=== PATIENT | female | born 1960 | race Caucasian/White ===

== ENCOUNTER 2017-09-11 09:12 | Day surgery (SDC) | payer OTHER ==
[2017-09-05 12:25] VITALS: BMI 26.4
[2017-09-11] MEDS ORDERED: MIDAZOLAM HCL 2 MG/2 ML SINGLE DOSE VIAL ONE (10:39)
[2017-09-11] MEDS ORDERED: ONDANSETRON 4 MG/2 ML VIAL IVPUSH PRN (11:22)
[2017-09-11] MEDS ORDERED: ACETAMINOPHEN 325 MG TABLET (FP) PO PRN (11:22)
[2017-09-11] MEDS ORDERED: oxyCODONE HCL 5 MG TABLET PO PRN (11:22)
[2017-09-11] MEDS ORDERED: LACTATED RINGERS SOLUTION 1,000 ML IV SCH (11:30)
[2017-09-11 12:10] VITALS: TEMP 97.6
[2017-09-11 12:26] VITALS: BP 120/72; PULSE 62
--- NOTE | 2017-09-13 08:57 | OP ---
DATE OF OPERATION: 09/11/2017 PREOPERATIVE DIAGNOSIS: Right hand mass. POSTOPERATIVE DIAGNOSIS: Right hand mass. OPERATIVE PROCEDURE: Right hand mass excision. ANESTHESIA: Local with sedation. COMPLICATIONS: None. ESTIMATED BLOOD LOSS: Minimal. INDICATION FOR PROCEDURE: Patient is a 56-year-old female with the above finding, indicated for operative treatment. Risks, benefits, and alternatives were discussed with the patient at length. Proper informed consent was obtained. PROCEDURE: After proper identification of the patient and the correct operative site, the patient was brought to the operating room and placed supine on the operating table. All prominences were well padded. Sedation was given by the anesthesiologist. Local anesthesia was given with 2% lidocaine. The right upper extremity was prepped and draped in the usual sterile fashion. A well-padded tourniquet was placed with a sterile prep. An Esmarch bandage was used to exsanguinate the right upper extremity. The tourniquet was inflated to 250 mmHg. The patient's mass was in the dorsal aspect of the hand just proximal to the MT joint to the index finger. The central portion of the mass was ellipsed out through the skin, and the subcutaneous tissues were excised around the mass in whole and sent for pathological evaluation. Skin was then elevated and repaired using a 5-0 nylon suture. Sterile dressings were applied. Patient was reversed from anesthesia and brought to recovery room in stable condition. She tolerated the procedure well. SANJUANITA CARRASCO M.D. [id number]
--- NOTE | 2017-09-18 12:14 | PATH ---
Surgical Pathology Report Patient Name: CROW WILLINGHAM Med. Rec. #: [id number] /Age/Gender: 1960 (Age: 56) / F Account: [id number] [facility] Taken: 09/11/2017 Received: 09/11/2017 Reported: 09/18/2017 Physicians: Vito Adams M.D. Specimen(s) Received RIGHT HAND MASS Clinical History Right hand mass Final Diagnosis HAND, RIGHT, MASS, EXCISION: SKIN WITH HYPERKERATOSIS, DERMAL FIBROSIS AND UNDERLYING DERMATOFIBROMA. Comment: Immunohistochemical stains performed at [place], [place] ([id number]) and interpreted at [facility] show the lesion is positive for factor XIIIa, SMA, and vimentin, while negative for CD34. Few histiocytes are highlighted by CD68. Proliferative marker, ki-67 labels few scattered nuclei. Additional immunohistochemical stain performed and interpreted at [facility] show S100 is negative. Above histomorphology and immunophenotype supports the diagnosis. Electronically Signed Gisela House M.D. Gross Description Received in formalin labeled "right hand mass," are 2 salgado, elliptical, unoriented portions of skin with underlying soft tissue averaging 1.2 x 0.2 cm. No discrete mass is identified. The specimens are submitted in toto in one cassette. 09/11/201709/11/2017
== END 2017-09-11 12:28 | disposition home or self-care (01) ==
LOC: FASU 09:12 → EDBD 11:00 → FASU 12:28
PROVIDERS: ATTEND Orthopaedic Surgery Hand Surgery
PROC: 0HBFXZX Excision of Right Hand Skin, External Approach, Diagnostic (ICD-10-PCS; principal; 2017-09-11 11:03)
DX: D23.61 Other benign neoplasm of skin of right upper limb, including shoulder (principal); L85.9 Epidermal thickening, unspecified; L90.5 Scar conditions and fibrosis of skin
CPT/HCPCS: 88305-TC; 88342-TC